=== PATIENT | male | born 1940 | race Caucasian/White ===

== ENCOUNTER → 2018-01-13 | Outpatient (CLI) | payer MEDICARE ==
--- NOTE | 2018-01-13 15:06 | RAD ---
Abdominal aortic ultrasound, 01/13/2018: HISTORY: Aortic aneurysm screening Duplex evaluation of the abdominal aorta was performed including grayscale, color-flow and spectral Doppler analysis. There is moderate atherosclerotic plaquing. The proximal abdominal aorta was obscured by overlying bowel. At the mid and distal abdominal aortic level the aorta measures approximately 2.5 cm in greatest diameter. No significant aneurysm is evident. The iliac artery artery regions were obscured by overlying bowel. IMPRESSION: Aortic atherosclerosis without evidence of significant abdominal aortic aneurysm. Electronically signed by: Jeff Mirza MD (01/13/2018 3:03 PM) [facility]
== END | disposition home or self-care (01) ==
LOC: US 09:50
PROVIDERS: ATTEND Nurse Practitioner Family
DX: Z13.89 Encounter for screening for other disorder (principal); I70.0 Atherosclerosis of aorta
CPT/HCPCS: 76770

== ENCOUNTER → 2018-10-06 | Outpatient (CLI) | payer OTHER ==
--- NOTE | 2018-10-06 17:14 | RAD ---
CHEST PA LATERAL Clinical indications: Nonproductive cough for 2 months. History COPD. COMPARISON: None available Findings: Old granulomatous disease is evident. Hyperinflation is seen consistent with COPD. Bilateral interstitial lung disease and/or bronchitis is seen. No lung consolidation or pleural effusion or Jessie B line's or lung mass or pneumothorax is seen. The heart size, pulmonary vasculature, mediastinum and both juan manuel are unremarkable. The osseous structures appear intact. Impression: COPD. Interstitial lung disease or bronchitis which may be acute or chronic in nature. No lung consolidation. Electronically signed by: Mj Ivy MD (10/06/2018 5:11 PM) [place] [id number]
== END | disposition home or self-care (01) ==
LOC: RAD 16:28
PROVIDERS: ATTEND Family Medicine
DX: J44.9 Chronic obstructive pulmonary disease, unspecified (principal); D71 Functional disorders of polymorphonuclear neutrophils
CPT/HCPCS: 71046

== ENCOUNTER → 2021-09-03 | Outpatient (CLI) | payer MEDICARE ==
--- NOTE | 2021-09-03 17:14 | RAD ---
XR HIP (WITH OR WITHOUT PELVIS) 1 VIEW History: Reason: RIGHT HIP PAIN. / Spl. Instructions: / History: Technique: AP view the pelvis and additional views of the bilateral hips. Comparison: None. Findings: No dislocation. Vascular calcifications. Lower lumbar spondylosis. 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 Linear lucency within the right iliac bone extending towards the right acetabulum. Impression: 1. Linear lucency within the right iliac bone extending towards the right acetabulum, concerning for acute nondisplaced fracture. Recommend CT to further assess. Electronically signed by: Shant Merino DO (09/03/2021 5:12 PM) [id number]
== END ==
LOC: RAD 10:25
PROVIDERS: ATTEND Family Medicine
DX: M16.0 Bilateral primary osteoarthritis of hip (principal); M47.816 Spondylosis without myelopathy or radiculopathy, lumbar region
CPT/HCPCS: 73521